=== PATIENT | male | born 1975 | race Two or more races ===

== ENCOUNTER 2019-07-08 05:40 | Emergency (ER) | payer BC, OTHER ==
[2019-07-08] MEDS ORDERED: Orphenadrine 100 MG Tab.ER PO STA (06:13)
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
[2019-07-08 06:22] VITALS: BP 143/98
== END 2019-07-08 06:31 | disposition home or self-care (01) ==
LOC: JD.ED 05:40
DX: S16.1XXA Strain of muscle, fascia and tendon at neck level, initial encounter (principal); S80.01XA Contusion of right knee, initial encounter; I25.2 Old myocardial infarction; Z88.8 Allergy status to other drugs, medicaments and biological substances; Z87.891 Personal history of nicotine dependence; V58.5XXA Driver of pick-up truck or van injured in noncollision transport accident in traffic accident, initial encounter
CPT/HCPCS: 99283; A9270

== ENCOUNTER 2023-09-26 07:04 | Day surgery (SDC) | payer BC ==
[~2023-09-26 07:04] MED LIST: Lactated Ringers 1,000 ML IV SCH; Sodium Chloride 0.9% 10 ML Syringe FLUSH PRN; Sodium Chloride 0.9% 10 ML Syringe FLUSH SCH
[2023-09-26] MEDS ORDERED: Ondansetron 4 MG/2 ML SDV IVPUSH PRN (07:30)
[2023-09-26] MEDS ORDERED: Propofol 200 MG/20 ML SDV ONE ×2 (07:48→07:52)
[2023-09-26] MEDS ORDERED: Midazolam 1 MG/ML 2 ML SDV ONE (07:48)
[2023-09-26] MEDS ORDERED: Lidocaine 1% 2 ML ONE (07:49)
[2023-09-26 09:32] VITALS: BP 124/98; PULSE 72
== END 2023-09-26 09:42 | disposition home or self-care (01) ==
LOC: JD.SDS 07:04
PROVIDERS: ATTEND Family Medicine
DX: D12.5 Benign neoplasm of sigmoid colon (principal); E78.2 Mixed hyperlipidemia; I25.10 Atherosclerotic heart disease of native coronary artery without angina pectoris; Z79.82 Long term (current) use of aspirin; Z79.899 Other long term (current) drug therapy; Z88.8 Allergy status to other drugs, medicaments and biological substances; Z87.891 Personal history of nicotine dependence
CPT/HCPCS: 45380; 45385; J2250; J2704; J7120; 00811; J3490